=== PATIENT | female | born 1950 | race African-American/Black ===

== ENCOUNTER 2017-03-25 10:06 | Day surgery (SDC) | payer MEDICARE, OTHER ==
[2014-10-01 10:31] VITALS: BP 130/86
--- NOTE | 2017-03-26 10:06 | Operative Note ---
SURGEON: Gee Lockwood MD ANESTHESIA: MAC anesthesia. ESTIMATED BLOOD LOSS: None. COMPLICATIONS: None. FINDINGS: 1. A small sessile polyp in the sigmoid colon removed with hot biopsy. 2. A 6 mm pedunculated polyp in the sigmoid removed with a cold snare. PREOPERATIVE DIAGNOSES: History of colon polyps. POSTOPERATIVE DIAGNOSES: Colon polyps. PROCEDURE PERFORMED: Colonoscopy with snare and hot biopsy polypectomy. DESCRIPTION OF PROCEDURE: The patient was brought to the endoscopy suite and placed in the left lateral decubitus position. A rectal exam was performed which was normal. The colonoscope was inserted and passed to the cecum. The ileocecal valve and appendiceal orifice were identified. The prep was adequate but had good visualization with washing. The colonoscope was slowly retracted being careful to inspect all montemayor. In the sigmoid, there was a small sessile polyp completely removed with a hot biopsy and in the distal sigmoid, there was a pedunculated 6 to 7 mm polyp which was completely removed with a cold snare. The site was hemostatic. The colonoscope was then removed. The patient tolerated the procedure well. RECOMMENDATIONS: We will follow up on her pathology. cc: Dr. Sam FLORES
== END 2017-03-25 10:07 ==
LOC: OPSURG 10:06
PROVIDERS: ATTEND Colon & Rectal Surgery
DX: K63.5 Polyp of colon (principal); R19.4 Change in bowel habit
CPT/HCPCS: 88305; J2704; J7120; 45385; S1016

== ENCOUNTER 2017-07-10 11:17 | Outpatient (CLI) | payer MEDICARE, OTHER ==
[2014-10-01 10:31] VITALS: BP 130/86
[2017-07-10 12:53] LABS: eGFR (African) > 60; eGFR (Non-African) > 60
--- NOTE | 2017-07-10 17:12 | Diagnostic Imaging Report ---
EVY DORSEY~ [facility] [address] [facility] [address] [place] [address]. [id number] ~ ~ ~ ~ Report Submission Date: Jul 10, 2017 11:54:04 AM CDT Patient ~ Study Name: MABEL DELEON ~ Date: Jul 10, 2017 11:32:31 AM CDT ~ Modality Type: CR Gender: F ~ Description: LOWER EXTREMITY : 52 ~ Institution: [facility] Physician: EVY DORSEY ~ ~ ~ ~ Left foot -three views CLINICAL HISTORY: ~ Pain and swelling FINDINGS: ~ Examination left foot in plantar, lateral oblique views demonstrates degenerative changes with narrowing of the interphalangeal joints and 1st metatarsophalangeal joint. ~Hallux valgus is evident. ~There is no fracture or dislocation and no lytic or blastic lesion. IMPRESSION: ~ Degenerative changes and hallux valgus. ~ Electronically signed on Jul 10, 2017 11:54:04 AM CDT by: Jordi FLORES
== END 2017-07-10 11:18 ==
LOC: LAB 11:17
PROVIDERS: ATTEND Family Medicine
DX: M79.672 Pain in left foot (principal); I10 Essential (primary) hypertension; R73.9 Hyperglycemia, unspecified
CPT/HCPCS: 73630; 80053; 83036

== ENCOUNTER 2017-07-20 14:48 | Outpatient (CLI) | payer MEDICARE, OTHER ==
[2014-10-01 10:31] VITALS: BP 130/86
== END 2017-07-20 14:50 ==
LOC: POD 14:48
PROVIDERS: ATTEND Podiatrist
DX: M20.12 Hallux valgus (acquired), left foot (principal); M79.675 Pain in left toe(s)
CPT/HCPCS: G0463

== ENCOUNTER 2017-08-03 14:31 | Outpatient (CLI) | payer MEDICARE, OTHER ==
[2014-10-01 10:31] VITALS: BP 130/86
== END 2017-08-03 14:33 ==
LOC: POD 14:31
PROVIDERS: ATTEND Podiatrist
DX: M20.12 Hallux valgus (acquired), left foot (principal)
CPT/HCPCS: G0463

== ENCOUNTER 2017-08-28 13:29 | Emergency (ER) | payer MEDICARE, OTHER ==
--- NOTE | 2017-08-28 13:51 | ED Physician Documentation ---
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 Pt became nauseated and had brief/momentary chest pain. Pt needed to sit down and felt that she might pass out.) - ROS CONST: weakness, other (lightheaded) EYES/ENT: none CVS/RESP: chest pain (very brief discomfort) GI/: nausea MS/SKIN/LYMPH: none NEURO/PSYCH: dizziness, other (lightheaded) - PAST HX Past History: other (anxiety, HLD, HTN.) Surgeries/Procedures: other (Hysterectomy, Tonsillectomy, bunion removal.) Allergies/Adverse Reactions: Allergies Allergy/AdvReac Type Severity Reaction Status Date / Time No Known Drug Allergies Allergy Verified 08/28/17 14:19 Home Medications: Ambulatory Orders Medication Instructions Recorded Sulfamethoxazole/Trimethoprim 1 each PO Q12H #10 tablet 08/28/17 [Bactrim Ds] - SOCIAL HX Smoking History: non-smoker - FAMILY HX Family History: No - VITAL SIGNS Vital Signs: Vital Signs Temp Pulse Resp BP Pulse Ox 130/86 10/02/14 13:16 - REVIEWED ASSESSMENTS Nursing Assessment Reviewed: Yes Vitals Reviewed: Yes Progress - Progress Progress: NS 1 L IVF KCl 20 mEq po x 1 Rx Bactrim DS. Take one every 12 hrs for 5 days. - EKG/XRAY/CT EKG: NSR (HR=79; normal SC interval; normal axis; normal EKG.) XRAY: chest (neg) ED Results Lab/Radiology - Orders Orders: ED Orders Category Date Time Status Continuous EKG monitoring Q30M Care 08/28/17 13:48 Active Continuous Pulse Oximetry Q30M Care 08/28/17 13:[address] IV Lock 1T Care 08/28/17 13:49 Active CHEST 1 VIEW [RAD] Stat Exams 08/28/17 13:48 Ordered BNP [NT-proBNP] Stat Lab 08/28/17 Ordered CBC/PLATELET/DIFF Routine Lab 08/28/17 13:48 Ordered CKMB Stat Lab 08/28/17 Ordered CMP Routine Lab 08/28/17 13:48 Ordered CREATINE KINASE Routine Lab 08/28/17 13:48 Ordered D DIMER Stat Lab 08/28/17 Ordered GRP A STREP SCREEN Stat Lab 08/28/17 Ordered TROPONIN I (cTnI) Stat Lab 08/28/17 13:48 Ordered NORMAL SALINE @ 1000 MLS/HR ( 1000ml BOLUS) Med 08/28/17 13:49 Ordered 0.9 % Sodium Chloride [Normal Saline] 1,000 ml IV Q1H EKG WITH COMPARISON Stat Ther 08/28/17 13:48 Ordered General Adult Physical Exam - PHYSICAL EXAM GENERAL APPEARANCE: moderate distress EENT: pharynx normal NECK: normal inspection, supple RESPIRATORY: no resp distress, chest non-tender, breath sounds normal CVS: reg rate & rhythm, heart sounds normal ABDOMEN: soft, no organomegaly, normal bowel sounds BACK: normal inspection SKIN: warm/dry, normal color EXTREMITIES: non-tender, normal range of motion, no evidence of injury, no edema NEURO: oriented X3, motor nml, sensation nml Discharge Clincal Impression: Dizziness UTI (urinary tract infection) Qualifiers: Urinary tract infection type: site unspecified Hematuria presence: without hematuria Qualified Code(s): N39.0 - Urinary tract infection, site not specified Prescriptions: Sulfamethoxazole/Trimethoprim [Bactrim Ds] 1 each PO Q12H #10 tablet Referrals: Sam Estrella MD [Primary Care Provider] - Condition: Stable Disposition: 01 HOME, SELF-CARE Decision to Admit: NO Decision Time: 15:57
[2017-08-28] MEDS: 0.9 % SODIUM CHLORIDE 1,000 ML IV ONE (14:00)
[2017-08-28 14:19] LABS: BASOPHILS % 0.4 (0.0-1.5); EOSINOPHILS % 2.6 % (0.0-6.8); MEAN CORPUSCULAR VOLUME 90.6 fl (80.0-100.0); MONOCYTES % 5.5 % (0.0-11.0); NEUTROPHILS # 5.7 # k/uL (1.4-7.7)
[2017-08-28 14:34] LABS: eGFR (African) > 60; eGFR (Non-African) > 60
[2017-08-28] MEDS: POTASSIUM CHLORIDE 20 MEQ TABLET.ER PO ONE (15:00)
--- NOTE | 2017-08-28 15:31 | Diagnostic Imaging Report ---
PAZ MAJANO [facility] [id number] [facility] [address] [place] [address]. [id number] Report Submission Date: Aug 28, 2017 2:17:32 PM CDT Patient Study Name: MABEL DELEON Date: Aug 28, 2017 1:47:53 PM CDT Modality Type: CR Gender: F Description: CHEST : 52 Institution: [facility] Physician: PAZ MAJANO Chest -one view CLINICAL HISTORY: Cough. Near syncope. FINDINGS: Examination of the chest in single portable AP view 08/28/2017 1347 hr with no prior film for comparison demonstrates the lungs to be clear. Cardiac silhouette is prominent and the aorta is atherosclerotic. Monitor leads superimpose the chest. IMPRESSION: Aortic atherosclerosis and left ventricular prominence. No active disease. Electronically signed on Aug 28, 2017 2:17:32 PM CDT by: Jorid LFORES
[2017-08-28 16:23] VITALS: BP 128/81
[2017-08-28 16:48] LABS: APPEARANCE,URINE Clear (CLEAR); COLOR,URINE Yellow (YELLOW); OCCULT BLOOD,URINE Trace-lysed (NEGATIVE); PH URINE 5.5 (5.0 - 8.0); UROBILINOGEN URINE 0.2 Eu (0.2-1.0)
== END 2017-08-28 16:22 | disposition home or self-care (01) ==
LOC: ED 13:29 → EDSTATUS 13:30 → ED 16:22
DX: N39.0 Urinary tract infection, site not specified (principal); R42 Dizziness and giddiness
CPT/HCPCS: 71010; 80053; 81002; 82550; 82553; 83880; 84484; 85025; 85379; 87070; 87880; 93005; A9270; J7030; 96360; 99283; S1016

== ENCOUNTER 2017-11-30 05:50 | Emergency (ER) | payer MEDICARE, OTHER ==
[2017-11-30 06:02] VITALS: BP 124/74
--- NOTE | 2017-11-30 06:26 | ED Physician Documentation ---
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 BP SL ELEVATELD-TOOK ALPRAZALOM NOW BP OK FEELS BETTER Onset: hours (0500) Timing: better Severity: mild Further Comments: yes (SLEEPS IN CHAIR FREQ AT HOME HX INADEQUATE SLEEP) - ROS CONST: no problems EYES/ENT: denies: problems with vision CVS/RESP: none GI/: none MS/SKIN/LYMPH: none NEURO/PSYCH: dizziness, anxiety - PAST HX Past History: hypertension, other (ANXIETY) Surgeries/Procedures: hysterectomy Allergies/Adverse Reactions: Allergies Allergy/AdvReac Type Severity Reaction Status Date / Time No Known Drug Allergies Allergy Verified 08/28/17 14:19 - SOCIAL HX Smoking History: non-smoker Alcohol Use: none Drug Use: none - FAMILY HX Family History: No - VITAL SIGNS Vital Signs: Vital Signs Temp Pulse Resp BP Pulse Ox 97.6 F 75 18 124/74 99 11/30/17 05:50 11/30/17 05:50 11/30/17 05:50 11/30/17 05:50 11/30/17 05:50 - REVIEWED ASSESSMENTS Nursing Assessment Reviewed: Yes Vitals Reviewed: Yes General Adult Physical Exam - PHYSICAL EXAM GENERAL APPEARANCE: no distress EENT: eye inspection normal NECK: normal inspection. No: lymphadenopathy, carotid bruit RESPIRATORY: no resp distress, chest non-tender, breath sounds normal CVS: reg rate & rhythm, heart sounds normal, equal pulses ABDOMEN: soft, non-tender SKIN: warm/dry, normal color EXTREMITIES: non-tender, normal range of motion, no evidence of injury, no edema NEURO: oriented X3, motor nml, sensation nml, mood/affect nml, other (RHOMBERG OK FINGER TO NOSE OK DEEP TENDON REFLEXES OK) Discharge Clincal Impression: HTN-RESOLVED, SLEEP DEPRIVED Referrals: Sam Estrella MD [Primary Care Provider] - 2 Days Comments: REC HOME REST RT WORK TOMORROW Condition: Good Disposition: 01 HOME, SELF-CARE Decision to Admit: NO Decision Time: 06:32
== END 2017-11-30 06:26 | disposition home or self-care (01) ==
LOC: ED 05:50
DX: Z72.820 Sleep deprivation (principal); F41.9 Anxiety disorder, unspecified; I10 Essential (primary) hypertension
CPT/HCPCS: 99282

== ENCOUNTER 2018-03-14 16:52 | Outpatient (CLI) | payer MEDICARE, OTHER ==
--- NOTE | 2018-03-14 17:19 | Diagnostic Imaging Report ---
EVY DORSEY [facility] [address] [facility] [address] [address] Report Submission Date: Mar 14, 2018 5:17:30 PM CDT Patient Study Name: MABEL DELEON Date: Mar 14, 2018 4:56:00 PM CDT Modality Type: DX Gender: F Description: PELVIS : 52 Institution: [facility] Physician: EVY DORSEY Examination: Plain film right hip History: PAIN X 5 MONTHS WITH NO KNOWN INJURY (Hx) Comparison exams: None provided Findings: 2 views of the right hip demonstrates ossific spurring. No fracture no dislocation. No soft tissue abnormality. Impression: No acute appearing osseous abnormality. Electronically signed on Mar 14, 2018 5:17:30 PM CDT by: Paramjit FLORES
== END 2018-03-14 16:53 ==
LOC: RAD 16:52
PROVIDERS: ATTEND Family Medicine
DX: M25.551 Pain in right hip (principal)
CPT/HCPCS: 73502

== ENCOUNTER 2018-06-01 12:47 | Outpatient (CLI) | payer MEDICARE, OTHER ==
--- NOTE | 2018-06-01 18:41 | Diagnostic Imaging Report ---
EVY DORSEY [facility] [address] [facility] [address] Report Submission Date: Jun 01, 2018 3:13:53 PM CDT Patient Study Name: MABEL DELEON Date: Jun 01, 2018 12:53:22 PM CDT Modality Type: DX Gender: F Description: UPPER EXTREMITY : 52 Institution: [facility] Physician: EVY DORSEY Right wrist History: Pain Three views of the right wrist were obtained which demonstrate mild narrowing of radiocarpal joint space. Otherwise, no osseous abnormalities are noted and mineralization is normal. Impression: Mild narrowing the radiocarpal joint space. Otherwise, no osseous abnormalities are noted. Electronically signed on Jun 01, 2018 3:13:53 PM CDT by: Ирина FLORES
== END 2018-06-01 13:30 ==
LOC: RAD 12:47
PROVIDERS: ATTEND Family Medicine
DX: M25.531 Pain in right wrist (principal)
CPT/HCPCS: 73110

== ENCOUNTER 2018-09-07 07:04 | Outpatient (CLI) | payer MEDICARE, OTHER | END 2018-09-07 10:49 | LOC: LAB 07:04 | PROVIDERS: ATTEND Family Medicine | DX: E78.5 Hyperlipidemia, unspecified (principal) | CPT/HCPCS: 36415; 80061 ==

== ENCOUNTER 2018-09-13 13:49 | Outpatient (CLI) | payer MEDICARE, OTHER ==
--- NOTE | 2018-09-13 18:10 | Diagnostic Imaging Report ---
EVY DORSEY [facility] [address] [address] Report Submission Date: Sep 13, 2018 4:46:06 PM CDT Patient Study Name: MABEL DELEON Date: Sep 13, 2018 1:57:13 PM CDT Modality Type: DX Gender: F Description: LOWER EXTREMITY : 52 Institution: [facility] Physician: EVY DORSEY Examination: Plain film feet History: LEFT HAMMER TOE EVAL IN PREP FOR SURGERY (Hx) Findings: 3 weightbearing views of the right and left foot demonstrates osteopenia and articular degenerative changes bilaterally. Right 1st digit surgical changes. Left 1st digit hallux valgus deformity. No gross soft tissue abnormalities. Bilateral calcaneal spurs. Impression: Left 1st digit hallux valgus deformity. Right 1st digit postsurgical changes. Osteopenia and articular degenerative changes. Electronically signed on Sep 13, 2018 4:46:06 PM CDT by: Paramjit FLORES
== END 2018-09-13 13:50 ==
LOC: RT 13:49
PROVIDERS: ATTEND Family Medicine
DX: R07.89 Other chest pain (principal); M20.12 Hallux valgus (acquired), left foot; M20.42 Other hammer toe(s) (acquired), left foot

== ENCOUNTER 2019-11-02 15:00 | Outpatient (CLI) | payer MEDICARE, OTHER ==
--- NOTE | 2019-11-02 17:13 | Diagnostic Imaging Report ---
PATIENT MR#: [id number] PATIENT PATIENT NAME: MABEL DELEON DATE OF : 1950 REFERRING PHYSICIAN: Sam Estrella EXAM DATE: 11/02/2019 ACCESSION NUMBER: [id number] EXAM DESCRIPTION: US U OR L EXT VEINS UNILAT Examination: Ultrasound right vein History: PAIN/SWELLING IN RT LEG HX- KNEE SURGERY IN JUL. Findings: Sonographic evaluation of the right lower extremity venous system from the groin to the pop liteal fossa inclusive. Normal compressibility. No luminal filling defect. Normal waveforms and response to augmen tation. No popliteal region fluid collection. Groin lymph node. Impression: No evidence for deep venous thrombosis. Read by: Dr. Paramjit Granados Transcribed by: Transcribed Date: Electronically signed by: Dr. Paramjit Granados Date signed: 11/02/2019 5:12:07 PM
== END 2019-11-02 15:10 ==
LOC: RAD 15:00
PROVIDERS: ATTEND Family Medicine
DX: M79.89 Other specified soft tissue disorders (principal)
CPT/HCPCS: 93971